=== PATIENT | female | born 1995 | race Caucasian/White ===

== ENCOUNTER 2016-08-24 21:13 | Emergency (ER) | payer OTHER ==
[2016-08-24 21:46] VITALS: BP 121/86; PULSE 72; RESP 16; TEMP 97.9; O2SAT 96
[2016-08-24] MEDS ORDERED: FLUORESCEIN SODIUM 1 MG STRIP OP ONE ×2 (23:34→23:50)
[2016-08-24] MEDS ORDERED: PROPARACAINE 0.5% 15 ML OPHT DROP ONE (23:35)
[2016-08-25] MEDS ORDERED: OFLOXACIN 0.3% SOLN PREPACK OPHT.BTL TAKEHOME ONE (00:01)
[2016-08-25] MEDS ORDERED: PROPARACAINE 0.5% 15 ML OPHT DROP OP ONE (00:01)
--- NOTE | 2016-08-25 00:02 | UCPHY ---
H & P Patient Type: Established Chief Complaint Nursing Narrative: Unable to get disposable contact out of right eye since 6pm after rubbing eye. Time Seen by Provider: 08/24/16 23:23 HPI/ROS: CHIEF COMPLAINT: Retained contact lens HISTORY OF PRESENT ILLNESS: Patient is a 20-year-old female who comes to the Urgent Care complaining that a contact lens stuck in her right eye. She thinks it is up high underneath her eyelid. She states that around 4 o'clock today she accidentally poked herself in the eye and thinks that she lodged the contact into the corner. It is a disposable contact. She has not had any drainage or vision changes. She did notice that her vision appears as it does without contact. REVIEW OF SYSTEMS: Constitutional: denies: chills, fever, recent illness, recent injury EENTM: See HPI Respiratory: denies: cough, shortness of breath Cardiac: denies: chest pain, irregular heart rate, lightheadedness, palpitations Gastrointestinal/Abdominal: denies: abdominal pain, diarrhea, nausea, vomiting, blood streaked stools Genitourinary: denies: dysuria, frequency, hematuria, pain Musculoskeletal: denies: joint pain, muscle pain Skin: denies: lesions, rash, jaundice, bruising Neurological: denies: headache, numbness, paresthesia, tingling, dizziness, weakness Hematologic/Lymphatic: denies: blood clots, easy bleeding, easy bruising Immunologic/allergic: denies: HIV/AIDS, transplant EXAM: GENERAL: Well-appearing, well-nourished and in no acute distress. HEAD: Atraumatic, normocephalic. EYES: Pupils equal round and reactive to light, extraocular movements intact, sclera anicteric, conjunctiva are normal. corneal Abrasions seen with slit lamp. No foreign body visualized a normal examination or slit-lamp examination with fluorescein. NECK: Normal range of motion, supple without lymphadenopathy or JVD. LUNGS: Breath sounds clear to auscultation bilaterally and equal. No wheezes rales or rhonchi. HEART: Regular rate and rhythm without murmurs, rubs or gallops. ABDOMEN: Soft, nontender, normoactive bowel sounds. No guarding, no rebound. No masses appreciated. BACK: No CVA tenderness, no spinal tenderness, step-offs or deformities EXTREMITIES: Normal range of motion, no pitting or edema. No clubbing or cyanosis. NEUROLOGICAL: Cranial nerves II through XII grossly intact. Normal speech, normal gait. 5/5 strength, normal movement in all extremities, normal sensation PSYCH: Normal mood, normal affect. SKIN: Warm, dry, normal turgor, no visible rashes or lesions. Source: Patient Exam Limitations: No limitations - Personal History LMP (Females 10-55): 22-28 Days Ago Current Tetanus Diphtheria and Acellular Pertussis (TDAP): Yes - Medical/Surgical History Hx Asthma: No Hx Chronic Respiratory Disease: No Hx Diabetes: No Hx Cardiac Disease: No Hx Renal Disease: No Hx Cirrhosis: No Hx Alcoholism: No Hx HIV/AIDS: No Hx Splenectomy or Spleen Trauma: No Other PMH: denies - Family History Significant Family History: No pertinent family hx - Social History Smoking Status: Never smoked Alcohol Use: Sober Drug Use: None Constitutional: Initial Vital Signs Temperature (C) 36.6 C 08/24/16 21:40 Heart Rate 72 08/24/16 21:40 Respiratory Rate 16 08/24/16 21:40 Blood Pressure 121/86 H 08/24/16 21:40 O2 Sat (%) 96 08/24/16 21:40 O2 Delivery Mode Room Air Allergies/Adverse Reactions: No Known Allergies Allergy (Verified 08/24/16 21:38) Home Medications: Medication Instructions Recorded Multivitamin [Multi-Day Vitamins] 08/24/16 Norgestimate-Ethinyl Estradiol 08/24/16 [Ortho Tri-Cyclen Lo Tablet] Medical Decision Making ED Course/Re-evaluation: The patient has a corneal abrasion on exam. I do not see a contacts. I did invert her eyelids and looking all corners with fluorescein and slit lamp. She is confident that service still one there. I will treat her for the abrasion and have her follow up with Ophthalmology tomorrow. She and her mom agree with this plan. Differential Diagnosis: Partial list of the Differential diagnosis considered include but were not limited to; corneal abrasion, retained contact lens and although unlikely based on the history and physical exam, I also considered glaucoma, conjunctivitis. I discussed these differential diagnoses and the plan with the patient as well as the usual and expected course. The patient understands that the diagnosis is provisional and that in medicine we are not always correct and that further workup is often warranted. Usual and customary warnings were given. All of the patient's questions were answered. The patient was instructed to return to the emergency department should the symptoms at all worsen or return, otherwise to followup with the physician as we discussed. - Data Points Medications Given: Discontinued Medications Ofloxacin (Ocuflox 0.3% Opht Drops Prepack) 1 btl TAKEHOME EDNOW ONE Stop: 08/25/16 00:02 Last Admin: 08/25/16 00:24 Dose: 1 btl Proparacaine HCl (Alcaine 0.5%) 1 drops OP EDNOW ONE Stop: 08/25/16 00:02 Last Admin: 08/25/16 00:15 Dose: 1 matthew Departure - Departure Disposition: Home, Routine, Self-Care Clinical Impression: Corneal abrasion due to contact lens Qualifiers: Laterality: right Qualified Code(s): H18.821 - Corneal disorder due to contact lens, right eye Condition: Fair Instructions: Corneal Abrasion (ED) Additional Instructions: Take the Ocuflox eyedrops 2 drops every 4 hours for the next 4 days and follow up with a order filler tomorrow. Referrals: NONE *PRIMARY CARE P,. [Primary Care Provider] - As per Instructions Ru Suarez MD [Medical Doctor] - As per Instructions Stand Alone Forms: Work Limited Duty, School Excuse - PQRS PQRS Measurement: Not applicable
== END 2016-08-25 00:20 | disposition home or self-care (01) ==
LOC: CED 21:13
DX: H18.821 Corneal disorder due to contact lens, right eye (principal)
CPT/HCPCS: G0463-PO